=== PATIENT | male | born 1995 | race Caucasian/White ===

== ENCOUNTER 2020-12-01 08:26 | Emergency (ER) | payer OTHER ==
[~2020-12-01] VITALS: Ht 170.2 cm; Wt 74.8 kg
[2020-12-01 08:30] VITALS: BP_SYST 128
[2020-12-01] MEDS: LEVOFLOXACIN IN DEXTROSE 5 % 100 ML IV SCH (09:00)
[2020-12-01 09:10] VITALS: BP_SYST 128
[2020-12-01] MEDS: NACL 0.9% 1,000 ML IV SCH (09:15)
== END 2020-12-01 09:10 ==
LOC: SED 08:26
DX: Z02.83 Encounter for blood-alcohol and blood-drug test (principal)